=== PATIENT | male | born 1935 | race Caucasian/White ===

== ENCOUNTER 2021-12-10 15:38 | Inpatient (IN) ==
[2021-12-10 16:26] LABS: Basophils # 0.1 K/mcL (0.0-0.2); Basophils % 1.1 %; Eosinophils # 0.3 K/mcL (0.0-0.6); Eosinophils % 3.7 %; Hematocrit 44.7 % (37.5-50.1); Hemoglobin 14.4 g/dL (12.9-16.9); Immature Granulocytes % 1.3 % (0-4); Lymphocytes # 0.9 K/mcL (0.6-4.6); Lymphocytes % 12.2 %; Mean Corpuscular HGB Conc 32.2 g/dL (31.6-35.5); Mean Corpuscular Volume 93.1 fL (83.0-100.0); Mean Platelet Volume 12.3 fL (9.4-12.4); Monocytes # 0.7 K/mcL (0.0-1.3); Monocytes % 9.2 %; Neutrophils # 5.5 K/mcL (1.6-8.9); Platelet Count 177 K/mcL (140-400); Red Cell Distribution Width 13.3 % (11.5-14.5); Segmented Neutrophils % 72.5 %; White Blood Count 7.6 K/mcL (4.3-11.1)
[2021-12-10 17:03] LABS: BUN/Creatinine Ratio 16 (6-26); Blood Urea Nitrogen 18 mg/dL (8-23); Calcium 8.9 mg/dL (8.6-10.3); Carbon Dioxide 26 mEq/L (23-29); Chloride 103 mEq/L (98-107); Glucose 127 mg/dL (70-105); Osmolality,Calculated 293 (280-300); Potassium 4.2 mEq/L (3.5-5.1); Sodium 140 mEq/L (136-145); Troponin I < 0.03 ng/mL (< 0.04); eGFR For African Americans > 60 (> 60); eGFR For Non-African Americans > 60 (> 60)
[2021-12-10] MEDS ORDERED: Isovue-370 500 ML BOTTLE IVP ONE (17:49)
[2021-12-10] MEDS ORDERED: Furosemide 40 MG/4 ML VIAL IVP ONE (18:01)
[2021-12-10] MEDS ORDERED: Naloxone 0.4 MG/ML INJ IVP PRN (20:48)
[2021-12-10] MEDS ORDERED: Melatonin 3 MG TABLET PO PRN (20:48)
[2021-12-10] MEDS ORDERED: Perflutren Lipid Microsphere 1.3 ML in 0.9 % Sodium Chloride 8.7 ML IVP PRN (23:14)
[2021-12-11] MEDS: MethylPREDNISolone 40 MG/ML VIAL IVP SCH ×3 (01:48→15:58)
[2021-12-11 02:25] LABS: Influenza A PCR Negative (Negative); Influenza B PCR Negative (Negative); Resp. Syncytial Virus PCR Negative (Negative)
[2021-12-11 02:31] LABS: SARS-CoV-2 by PCR (In House) Negative (Negative)
[2021-12-11] MEDS: Albuterol 2.5 MG/3 ML NEBULIZER IH SCH ×4 (04:00→21:33)
[2021-12-11] MEDS ORDERED: *HR* Heparin 5,000 UNIT/ML VIAL SQ SCH (06:00)
[2021-12-11 06:27] LABS: Hematocrit 44.5 % (37.5-50.1); Hemoglobin 14.2 g/dL (12.9-16.9); Mean Corpuscular HGB Conc 31.9 g/dL (31.6-35.5); Mean Corpuscular Hemoglobin 29.4 pg (28.0-33.3); Mean Corpuscular Volume 92.1 fL (83.0-100.0); Mean Platelet Volume 12.6 fL (9.4-12.4); Platelet Count 164 K/mcL (140-400); Red Blood Count 4.83 M/mcL (4.19-5.50); Red Cell Distribution Width 13.3 % (11.5-14.5); White Blood Count 8.2 K/mcL (4.3-11.1)
[2021-12-11 06:51] LABS: Alanine Aminotransferase 7 Units/L (7-52); Albumin 3.8 g/dL (3.5-5.7); Albumin/Globulin Ratio 1.3 (1.1-2.2); Alkaline Phosphatase 92 Units/L (34-104); Aspartate Amino Transferase 14 Units/L (13-39); BUN/Creatinine Ratio 15 (6-26); Bilirubin,Total 0.8 mg/dL (0.3-1.0); Blood Urea Nitrogen 18 mg/dL (8-23); Calcium 9.2 mg/dL (8.6-10.3); Carbon Dioxide 27 mEq/L (23-29); Chloride 103 mEq/L (98-107); Glucose 144 mg/dL (70-105); Magnesium 2.2 mg/dL (1.6-2.6); Osmolality,Calculated 292 (280-300); Potassium 4.7 mEq/L (3.5-5.1); Sodium 139 mEq/L (136-145); Total Protein 6.8 g/dL (6.4-8.9); eGFR For African Americans > 60 (> 60); eGFR For Non-African Americans 59 (> 60)
[2021-12-11] MEDS: Aspirin Enteric Coated 81 MG Tablet PO SCH (08:46)
[2021-12-11] MEDS: PIRFENIDONE 267 MG PO SCH ×4 (08:47→21:42)
[2021-12-11] MEDS: Furosemide 40 MG/4 ML VIAL IVP SCH ×2 (08:47→21:13)
[2021-12-11] MEDS: *HR* Heparin 5,000 UNIT/ML VIAL SQ SCH ×2 (15:58→21:12)
[2021-12-12] MEDS: MethylPREDNISolone 40 MG/ML VIAL IVP SCH ×4 (00:09→23:12)
[2021-12-12 03:28] LABS: Hematocrit 43.4 % (37.5-50.1); Hemoglobin 14.1 g/dL (12.9-16.9); Mean Corpuscular HGB Conc 32.5 g/dL (31.6-35.5); Mean Corpuscular Hemoglobin 29.3 pg (28.0-33.3); Mean Corpuscular Volume 90.2 fL (83.0-100.0); Mean Platelet Volume 12.7 fL (9.4-12.4); Platelet Count 171 K/mcL (140-400); Red Blood Count 4.81 M/mcL (4.19-5.50); Red Cell Distribution Width 13.1 % (11.5-14.5); White Blood Count 9.4 K/mcL (4.3-11.1)
[2021-12-12] MEDS: Albuterol 2.5 MG/3 ML NEBULIZER IH SCH ×4 (03:41→21:32)
[2021-12-12 03:49] LABS: BUN/Creatinine Ratio 21 (6-26); Blood Urea Nitrogen 27 mg/dL (8-23); Calcium 9.4 mg/dL (8.6-10.3); Carbon Dioxide 26 mEq/L (23-29); Chloride 100 mEq/L (98-107); Glucose 151 mg/dL (70-105); Osmolality,Calculated 292 (280-300); Potassium 4.7 mEq/L (3.5-5.1); Sodium 137 mEq/L (136-145); eGFR For African Americans > 60 (> 60); eGFR For Non-African Americans 54 (> 60)
[2021-12-12] MEDS: *HR* Heparin 5,000 UNIT/ML VIAL SQ SCH ×3 (05:18→20:36)
[2021-12-12] MEDS: Furosemide 40 MG/4 ML VIAL IVP SCH ×2 (07:25→20:33)
[2021-12-12] MEDS: Aspirin Enteric Coated 81 MG Tablet PO SCH (07:25)
[2021-12-12] MEDS: PIRFENIDONE 267 MG PO SCH ×4 (07:27→23:18)
[2021-12-12] MEDS: Metoprolol XL (24 HR) Succ 25 MG TAB.ER.24H PO SCH (07:43)
[2021-12-12] MEDS: lisinopriL 20 MG TABLET PO SCH (07:43)
[2021-12-12] MEDS ORDERED: PIRFENIDONE 267 MG PO SCH (15:00)
[2021-12-13] MEDS: Albuterol 2.5 MG/3 ML NEBULIZER IH SCH ×2 (04:02→10:27)
[2021-12-13] MEDS: *HR* Heparin 5,000 UNIT/ML VIAL SQ SCH (05:59)
[2021-12-13] MEDS: Furosemide 40 MG/4 ML VIAL IVP SCH (08:20)
[2021-12-13] MEDS: MethylPREDNISolone 40 MG/ML VIAL IVP SCH (08:20)
[2021-12-13] MEDS: Aspirin Enteric Coated 81 MG Tablet PO SCH (08:21)
[2021-12-13] MEDS: lisinopriL 20 MG TABLET PO SCH (08:21)
[2021-12-13] MEDS: PIRFENIDONE 267 MG PO SCH (08:21)
[2021-12-13] MEDS: Metoprolol XL (24 HR) Succ 25 MG TAB.ER.24H PO SCH (08:21)
[2021-12-13] MEDS ORDERED: Doxycycline 100 MG CAPSULE PO SCH (09:00)
[2021-12-13 09:17] VITALS: BP 114/66; PULSE 90; TEMP 97.6
[2021-12-13 16:49] VITALS: O2SAT 95
== END 2021-12-13 11:50 | disposition home or self-care (01) | DRG 291 ==
LOC: EMEROOARM 15:38 → 2ANU 15:38 → SUATTDRO 22:15
PROVIDERS: ADMIT Internal Medicine; ATTEND Family Medicine